=== PATIENT | female | born 2000 | race Two or more races ===

== ENCOUNTER 2023-08-23 23:04 | Emergency (ER) | payer BC, OTHER ==
[~2023-08-23] VITALS: Ht 170.2 cm; Wt 55.0 kg
[2023-08-23 23:04] VITALS: BP 117/76; PULSE 89; RESP 20; O2SAT 96
== END 2023-08-24 03:19 | disposition home or self-care (01) ==
LOC: ER 23:04
DX: M79.662 Pain in left lower leg (principal)
CPT/HCPCS: 93971